=== PATIENT | male | born 1985 | race Caucasian/White ===

== ENCOUNTER 2017-03-27 07:29 | Day surgery (SDC) | payer MEDICAID ==
[~2017-03-27] VITALS: Ht 188 cm; Wt 77.1 kg
--- NOTE | ~2017-03-27 | OP ---
PATIENT NAME: BRITTANEY OVIEDO MEDICAL RECORD: [id number] :85 LOCATION:D.OPS ADMISSION DATE: SURGEON: DOMINIC MONTANA MD DATE OF OPERATION: 03/27/2017 PREOPERATIVE DIAGNOSIS: Pilonidal cyst. POSTOPERATIVE DIAGNOSIS: Pilonidal cyst. PROCEDURE: Pilonidal cystectomy with marsupialization. SURGEON: Dominic Montana MD REPORT OF PROCEDURE: The patient was placed in the jackknife prone position in the perirectal region and perineum were prepped and draped in sterile fashion. The patient had 4 openings present in the superior gluteal region, 2 of these were in the midline, and 2 of a more deviating toward the left side of the upper buttock. I penetrated each one of these and there was spillage of some kind of thickened mucinous material, but no jordin pus. Cultures were taken times 2. We eventually opened up between all 4 of these openings as there were noted to be tracking together. The openings had a cystic cavity present with some hair visible in the wounds. I eventually just transected all of the surrounding cystic tissue including any inflammatory tissue until we had normal appearing skin and subcutaneous fat. We continued our dissection down just above the patient's sacral fascia. The total size of the wound at this time was 8-1/2 cm long x 4.3 cm wide. The wound was irrigated out thoroughly with normal saline and care was taken to stop any bleeding that was present. We then marsupialized the edges of the skin as far to the midline as possible using multiple interrupted 2-0 Vicryls. At this point, the wound was then packed with a damp piece of gauze and covered with dry gauze. COMPLICATIONS: None. CONDITION: Stable. ANESTHESIA: General endotracheal. BLOOD LOSS: 50 mL. TRANSINT:[id number] Voice Confirmation ID: [id number] DOCUMENT ID: [id number] DOMINIC MONTANA MD CC: [id number] DICTATION DATE: 03/27/17 1017 TRUCK TECHNICIAN: 03/27/17 1105 [facility] [address] [place] [address]
[~2017-03-27 07:29] MED LIST: ROBAXIN500 MG; TRAMADOL HCL E200 M1 PO; VALIUM 2 MG TAB2 MG PO
[2017-03-27] MEDS ORDERED: PRILOSEC10 M1 PO (08:10)
[2017-03-27] MEDS ORDERED: XOLAIR150 MG/VIA (08:10)
[2017-03-27 08:21] LABS: BASOPHILS 0.2 % (0-2); EOSINOPHILS 2.2 % (0-7); HEMATOCRIT 40.6 % (42.0-54.0); HEMOGLOBIN 13.3 g/dL (13.5-17.5); IMMATURE GRANULOCYTES 0.2 % (0-5); LYMPHOCYTES 34.6 % (15-50); MCH 32.6 pg (26.0-34.0); MCHC 32.8 g/dL (31.0-37.0); MCV 99.5 fL (80.0-100.0); MEAN PLATELET VOLUME 9.7 fL (7.4-10.4); MONOCYTES 10.7 % (2-11); NEUTROPHILS 52.1 % (40-80); PLATELET COUNT 207 10x3/uL (130-400); RBC 4.08 10x6/uL (4.20-6.10); RDW 12.8 % (11.5-14.5); WBC 6.3 10x3/uL (4.8-10.8)
[2017-03-27 08:23] VITALS: BP 108/63; Ht 188 cm; Wt 77.1 kg
[2017-03-27 08:46] LABS: CALC OSMOLALITY 283 mosm/kg (275-300); CALCIUM 9.1 mg/dL (8.5-10.1); CARBON DIOXIDE 28.1 mmol/L (21.0-32.0); CHLORIDE - SERUM 106 mmol/L (98-107); CREATININE - SERUM 0.9 mg/dL (0.6-1.3); GLUCOSE 78 mg/dL (74-106); SODIUM 143 mmol/L (136-145); UREA NITROGEN 12 mg/dL (7-18); eGFR NON AFRICAN AMERICAN > 90 mL/min (90-120)
[2017-03-27] MEDS ORDERED: HYDROCODONE-APA1 TAB PO (10:13)
== END 2017-03-27 14:50 | disposition home or self-care (01) ==
LOC: D.OPS 07:29 → D.PAN 09:30 → D.OPS 09:30
PROVIDERS: Surgery
DX: L05.91 Pilonidal cyst without abscess (principal); F17.200 Nicotine dependence, unspecified, uncomplicated; K21.9 Gastro-esophageal reflux disease without esophagitis; Z01.812 Encounter for preprocedural laboratory examination

== ENCOUNTER 2017-03-30 19:30 | Emergency (ER) | payer MEDICAID ==
[2017-03-27 08:23] VITALS: BMI 21.8
[~2017-03-30 19:30] MED LIST changes: +HYDROCODONE-APA1 TAB PO; +PRILOSEC10 M1 PO; +XOLAIR150 MG/VIA
== END 2017-03-30 23:09 | disposition home or self-care (01) ==
LOC: D.ER 19:30
DX: G89.18 Other acute postprocedural pain (principal)

== ENCOUNTER 2017-07-17 09:35 | Day surgery (SDC) | payer OTHER, MEDICAID ==
[~2017-07-17] VITALS: Ht 188 cm; Wt 81.6 kg
--- NOTE | ~2017-07-17 | OP ---
PATIENT NAME: BRITTANEY OVIEDO MEDICAL RECORD: [id number] :85 LOCATION:DTOAN ADMISSION DATE: SURGEON: BARBARA MONTANA MD DATE OF OPERATION: 07/17/2017 PREOPERATIVE DIAGNOSIS: Recurrent pilonidal cyst. POSTOPERATIVE DIAGNOSIS: Recurrent pilonidal cyst. PROCEDURE: Pilonidal cystectomy. SURGEON: Barbara Montana MD REPORT OF PROCEDURE: The patient was placed in the jackknife prone position. An ovoid incision was made on the superior aspect of the old scar where the patient had a palpable pilonidal cyst. We penetrated the cyst and there was not much to the cavity. There is definitely no purulent material or hair in the wound. The entire area was completely excised and we undermined the tissue in all directions. The total length of the incision was about 3 cm. The subcutaneous tissues were irrigated out and then reapproximated with interrupted 3-0 Vicryl and the skin incision was reapproximated with vertical mattress 2-0 nylon. The wound was then dressed appropriately. COMPLICATIONS: None. CONDITION: Stable. ANESTHESIA: General endotracheal. BLOOD LOSS: Minimal. TRANSINT:[id number] Voice Confirmation ID: [id number] DOCUMENT ID: [id number] BARBARA MONTANA MD at 1309 CC: [id number] DICTATION DATE: 07/17/17 1318 HOSPITAL FELLOW: 07/17/17 1506 [facility] 07/17/[address] [id number]
[~2017-07-17 09:35] MED LIST changes: +CARAFATE1 G; +PRILOSEC2.5 MG PO
[2017-07-17 10:11] LABS: BASOPHILS 0.3 % (0-2); HEMATOCRIT 46.4 % (42.0-54.0); HEMOGLOBIN 15.9 g/dL (13.5-17.5); IMMATURE GRANULOCYTES 0.3 % (0-5); LYMPHOCYTES 31.9 % (15-50); MCH 33.1 pg (26.0-34.0); MCHC 34.3 g/dL (31.0-37.0); MCV 96.5 fL (80.0-100.0); MEAN PLATELET VOLUME 9.7 fL (7.4-10.4); MONOCYTES 8.7 % (2-11); NEUTROPHILS 56.8 % (40-80); RBC 4.81 10x6/uL (4.20-6.10); RDW 13.6 % (11.5-14.5); WBC 6.7 10x3/uL (4.8-10.8)
[2017-07-17 10:12] LABS: PLATELET COUNT 264 10x3/uL (130-400)
[2017-07-17 10:25] LABS: CALC OSMOLALITY 278 mosm/kg (275-300); CALCIUM 9.5 mg/dL (8.5-10.1); CARBON DIOXIDE 27.5 mmol/L (21.0-32.0); CHLORIDE - SERUM 103 mmol/L (98-107); CREATININE - SERUM 0.9 mg/dL (0.6-1.3); GLUCOSE 102 mg/dL (74-106); POTASSIUM - SERUM 4.7 mmol/L (3.5-5.1); SODIUM 140 mmol/L (136-145); UREA NITROGEN 13 mg/dL (7-18); eGFR NON AFRICAN AMERICAN > 90 mL/min (90-120)
[2017-07-17] MEDS ORDERED: OMEPRAZOLE20 M1 PO (10:25)
[2017-07-17 10:33] VITALS: BP 119/60; Ht 188 cm; Wt 81.6 kg
[2017-07-17] MEDS ORDERED: HYDROCODONE-APA1 TAB PO (13:10)
== END 2017-07-17 14:55 | disposition home or self-care (01) ==
LOC: D.OPS 09:35 → D.PAN 12:00 → D.OPS 14:55
PROVIDERS: Surgery
DX: L05.91 Pilonidal cyst without abscess (principal); Z01.812 Encounter for preprocedural laboratory examination

== ENCOUNTER → 2017-08-17 13:36 | Outpatient (CLI) | payer MEDICAID ==
[2017-07-17 10:33] VITALS: BMI 23.1
[~2017-08-17 13:36] MED LIST changes: +OMEPRAZOLE20 M1 PO
== END | disposition home or self-care (01) ==
LOC: D.LAB 13:36
DX: L05.01 Pilonidal cyst with abscess (principal); Z98.890 Other specified postprocedural states

== ENCOUNTER 2018-10-07 03:08 | Emergency (ER) | payer MEDICAID ==
[~2018-10-07] VITALS: Ht 188 cm; Wt 79.5 kg
[2018-10-07 03:09] VITALS: Ht 188 cm; Wt 79.5 kg
[2018-10-07] MEDS ORDERED: HYDROCODON-ACE1 EA10 PO (03:39)
[2018-10-07 04:07] VITALS: BP 113/69
== END 2018-10-07 06:55 | disposition home or self-care (01) ==
LOC: D.ER 03:08
DX: M54.5 Low back pain (principal)

== ENCOUNTER 2018-10-11 14:40 | Emergency (ER) | payer MEDICAID ==
[~2018-10-11] VITALS: Ht 188 cm; Wt 68.2 kg
[~2018-10-11 14:40] MED LIST changes: +HYDROCODON-ACE1 EA10 PO
[2018-10-11 14:46] VITALS: Ht 188 cm; Wt 68.2 kg
[2018-10-11 19:02] LABS: BASOPHILS 0.3 % (0-2); EOSINOPHILS 1.6 % (0-7); HEMATOCRIT 41.2 % (42.0-54.0); IMMATURE GRANULOCYTES 0.3 % (0-5); LYMPHOCYTES 36.4 % (15-50); MCH 33.3 pg (26.0-34.0); MCV 98.1 fL (80.0-100.0); MEAN PLATELET VOLUME 9.5 fL (7.4-10.4); MONOCYTES 9.6 % (2-11); NEUTROPHILS 51.8 % (40-80); PLATELET COUNT 240 10x3/uL (130-400); RDW 13.2 % (11.5-14.5); WBC 3.8 10x3/uL (4.8-10.8)
[2018-10-11 19:16] LABS: ALBUMIN 3.9 g/dL (3.4-5.0); ALKALINE PHOSPHATASE 78 U/L (46-116); ALT (SGPT) 18 U/L (10-68); BILIRUBIN - TOTAL 0.22 mg/dL (0.2-1.3); CALC OSMOLALITY 289 mosm/kg (275-300); CALCIUM 8.9 mg/dL (8.5-10.1); CARBON DIOXIDE 31.7 mmol/L (21.0-32.0); CHLORIDE - SERUM 110 mmol/L (98-107); CREATININE - SERUM 0.9 mg/dL (0.6-1.3); GLUCOSE 96 mg/dL (74-106); POTASSIUM - SERUM 4.7 mmol/L (3.5-5.1); PROTEIN - SERUM 7.4 g/dL (6.4-8.2); SODIUM 146 mmol/L (136-145); UREA NITROGEN 11 mg/dL (7-18); eGFR NON AFRICAN AMERICAN > 90 mL/min (90-120)
[2018-10-11 20:01] LABS: APPEARANCE CLEAR (CLEAR); BILIRUBIN NEGATIVE (NEGATIVE); COLOR YELLOW (YELLOW); GLUCOSE NEGATIVE (NEGATIVE); KETONE NEGATIVE (NEGATIVE); NITRITE NEGATIVE (NEGATIVE); PROTEIN NEGATIVE (NEGATIVE); UROBILINOGEN NORMAL (NORMAL)
[2018-10-11 20:39] VITALS: BP 132/78
== END 2018-10-11 20:41 | disposition home or self-care (01) ==
LOC: D.ER 14:40
PROVIDERS: Emergency Medicine
DX: R10.9 Unspecified abdominal pain (principal); D72.819 Decreased white blood cell count, unspecified